=== PATIENT | female | born 1975 | race Two or more races ===

== ENCOUNTER → 2024-09-06 | Outpatient (CLI) | payer MEDICAID, SELFPAY ==
--- NOTE | 2024-09-06 13:45 | XR_ITS ---
Examination: Breast ultrasound, unilateral, right complete Date and time of exam: September 06, 2024 1434 hours INDICATIONS: Outside mammogram July 03, 2024 8 mm mass 10:00 position right breast 3 cm from the nipple Technique: Real-time frye scale ultrasonographic imaging performed right breast including all 4 quadrants as well as nipple retroareolar and axillary region. Findings: 2:00 cyst 8 x 6 mm 9:00 cyst 3 x 4 mm 10:00 intramammary lymph node 7 x 8 mm IMPRESSION: BI-RADS Category 2: Benign findings
--- NOTE | 2024-09-06 14:15 | XR_ITS ---
Examination: Diagnostic digital mammography, unilateral, right Computer aided detection 3-D breast Tomosynthesis, unilateral Date and time of exam: September 06, 2024 1505 hours INDICATIONS: Outside mammogram July 03, 2024 10:00 nodule right breast Technique: Nonmagnified MLO, CC views of the right breast have been obtained, reconstructed from 3-D Tomosynthesis images. R2 computer aided detection program utilized for evaluation of suspicious masses and/or abnormal calcifications. 3-D Tomosynthesis images obtained. Findings: The breast is heterogeneously dense, which may obscure small masses 10:00 nodule is noted, circumscribed, 7 mm Impression: BI-RADS category 3: Probably benign findings Recommend 1 additional 6 month right mammogram follow-up to document stability of 10:00 nodule described above
== END | disposition home or self-care (01) ==
LOC: CDIM 14:18
PROVIDERS: PCP Physician Assistant; Referring Provider Physician Assistant; Visit Provider Physician Assistant
DX: N63.11 Unspecified lump in the right breast, upper outer quadrant (principal); N60.01 Solitary cyst of right breast
CPT/HCPCS: 76641; 77061; 77065; G0279

== ENCOUNTER → 2025-04-18 | Outpatient (CLI) | payer MEDICAID, SELFPAY ==
--- NOTE | 2025-04-18 10:30 | XR_ITS ---
Examination: Breast ultrasound, unilateral, right complete Date and time of exam: April 18, 2025, 1041 hrs., Comparison September 06, 2024 Indications: Mammogram September 06, 2024 7 mm nodule 10:00 position right breast Technique: Real-time frye scale ultrasonographic imaging performed right breast including all 4 quadrants as well as nipple retroareolar and axillary region. Findings: Multiple benign cysts 9:00 lymph node 8 x 6 mm 10:00 cyst 6 x 7 mm Retroareolar nodule circumscribed 5 x 5 mm Impression: BI-RADS Category 2: Benign findings
--- NOTE | 2025-04-18 11:00 | XR_ITS ---
Examination: Diagnostic digital mammography, unilateral, right Computer aided detection 3-D breast Tomosynthesis, unilateral Date and time of exam: 04/18/2025, 10:56 AM Comparisons: June 2024, August 2024 Indications: Follow-up probably benign 8:00 mass Technique: Nonmagnified MLO, CC views of the right breast have been obtained, reconstructed from 3-D Tomosynthesis images. R2 computer aided detection program utilized for evaluation of suspicious masses and/or abnormal calcifications. 3-D Tomosynthesis images obtained. Technologist: Findings: The breasts are heterogeneously dense, which may obscure small masses. No evidence of abnormal masses or suspicious calcifications. The previously described abnormality is not seen on today's exam. Impression: BI-RADS category 1: Negative findings (within normal) Recommend 1 year follow-up mammogram
== END | disposition home or self-care (01) ==
LOC: CDIM 10:27
PROVIDERS: PCP Physician Assistant; Referring Provider Physician Assistant; Visit Provider Physician Assistant
DX: R92.311 Mammographic fatty tissue density, right breast (principal)
CPT/HCPCS: 76641; 77061; 77065; G0279